=== PATIENT | male | born 1960 | race Caucasian/White ===

== ENCOUNTER → 2020-05-16 | Outpatient (CLI) | payer OTHER ==
[~2020-05-16] MED LIST: AMIODARONE HCL200 MG PO; CARAFATE1 GM/10 ML PO; ELIQUIS5 MG PO; HYDROCHLOROTHIA25 MG PO; LISINOPRIL10 MG PO; METOPROLOL SUCC50 MG PO; OMEPRAZOLE20 M1 PO; SIMVASTATIN80 MG PO
[2020-05-16 11:43] LABS: BASOPHILS % 0.6 % (0.0-1.0); EOSINOPHILS # (AUTO) 0.2 (0.0-0.4); EOSINOPHILS % 3.1 % (0.0-6.0); HEMATOCRIT 41.5 % (38.2-49.6); HEMOGLOBIN 13.7 g/dL (14.0-18.0); LYMPHOCYTES # (AUTO) 1.2 (1.0-3.2); LYMPHOCYTES % 16.6 % (18.0-39.1); MEAN CORPUSCULAR HEMOGLOBIN 32.5 pg (28-32); MEAN CORPUSCULAR VOLUME 98.3 fL (81-99); MONOCYTES # (AUTO) 0.5 (0.2-0.8); MONOCYTES % 7.4 % (4.4-11.3); NEUTROPHILS # (AUTO) 5.2 (2.1-6.9); PLATELET COUNT 167 x10e3/uL (140-360); RED BLOOD COUNT 4.22 x10e6/uL (4.3-5.7); RED CELL DISTRIBUTION WIDTH 12.2 % (11.7-14.4)
[2020-05-16 11:55] LABS: INR 0.97; PROTHROMBIN TIME 13.5 seconds (11.9-14.5)
[2020-05-16 12:04] LABS: ALBUMIN 3.4 g/dL (3.5-5.0); ALBUMIN/GLOBULIN RATIO 1.1 (0.8-2.0); ANION GAP 13.3 mmol/L (8-16); CALCIUM 8.7 mg/dL (8.4-10.2); CREATININE, SERUM 1.94 mg/dL (0.72-1.25); POTASSIUM 5.3 mmol/L (3.5-5.1)
== END ==
LOC: LAB 15:56 → EDSTATUS 05-20 09:00
PROVIDERS: ATTEND Internal Medicine Cardiovascular Disease
DX: Z01.812 Encounter for preprocedural laboratory examination (principal); Z20.828 Contact with and (suspected) exposure to other viral communicable diseases; I25.10 Atherosclerotic heart disease of native coronary artery without angina pectoris
CPT/HCPCS: 36415; 80053; 85025; 85610; U0002

== ENCOUNTER → 2020-05-27 | Day surgery (SDC) | payer OTHER ==
[2020-05-23 14:17] LABS: BASOPHILS # (AUTO) 0.1 (0.0-0.1); BASOPHILS % 0.8 % (0.0-1.0); EOSINOPHILS # (AUTO) 0.2 (0.0-0.4); EOSINOPHILS % 3.3 % (0.0-6.0); HEMATOCRIT 42.3 % (38.2-49.6); HEMOGLOBIN 14.2 g/dL (14.0-18.0); LYMPHOCYTES # (AUTO) 1.3 (1.0-3.2); LYMPHOCYTES % 20.7 % (18.0-39.1); MEAN CORPUSCULAR HEMOGLOBIN 32.9 pg (28-32); MEAN CORPUSCULAR HGB CONC 33.6 g/dL (31-35); MEAN CORPUSCULAR VOLUME 98.1 fL (81-99); MONOCYTES # (AUTO) 0.4 (0.2-0.8); MONOCYTES % 5.7 % (4.4-11.3); NEUTROPHILS # (AUTO) 4.3 (2.1-6.9); NEUTROPHILS % 69.2 % (38.7-80.0); PLATELET COUNT 185 x10e3/uL (140-360); RED BLOOD COUNT 4.31 x10e6/uL (4.3-5.7)
[2020-05-23 14:27] LABS: INR 0.91; PROTHROMBIN TIME 12.8 seconds (11.9-14.5)
[2020-05-23 14:40] LABS: ALBUMIN 3.7 g/dL (3.5-5.0); ALBUMIN/GLOBULIN RATIO 1.2 (0.8-2.0); ANION GAP 12.7 mmol/L (8-16); CALCIUM 9.4 mg/dL (8.4-10.2); CREATININE, SERUM 1.78 mg/dL (0.72-1.25); POTASSIUM 4.7 mmol/L (3.5-5.1)
[~2020-05-27] VITALS: Ht 177.8 cm; Wt 108.9 kg
[2020-05-27] VITALS (8 sets, daily range): BP systolic 121–136; BP diastolic 77–91
[~2020-05-27] MED LIST changes: +FENTANYL CITRATE/PF 100MCG/2 ML INJ ONE; +HEPARIN SOD/SOD CHLORIDE 2,000 ML ONE; +IOPAMIDOL 370 MG/ML 200 ML INFUS..BTL INJ ONE; +LIDOCAINE HCL 2% LOCAL 20 ML VIAL ONE; +MIDAZOLAM HCL 2 MG/2 ML VIAL ONE; +SODIUM CHLORIDE 0.9% 1000ML 1,000 ML ONE; +VERAPAMIL HCL 2.5 MG/ML 2 ML VIAL ONE
== END | disposition home or self-care (01) ==
LOC: CATH LAB 10:08
PROVIDERS: ATTEND Internal Medicine Cardiovascular Disease
DX: I25.118 Atherosclerotic heart disease of native coronary artery with other forms of angina pectoris (principal); I11.0 Hypertensive heart disease with heart failure; I50.9 Heart failure, unspecified; R94.39 Abnormal result of other cardiovascular function study; I48.92 Unspecified atrial flutter; I45.10 Unspecified right bundle-branch block; Z01.812 Encounter for preprocedural laboratory examination; Z20.822 Contact with and (suspected) exposure to COVID-19; Z79.02 Long term (current) use of antithrombotics/antiplatelets; Z68.34 Body mass index [BMI] 34.0-34.9, adult
CPT/HCPCS: 36415; 80053; 85025; 85610; 93458; C1769; C1887; J2001; J2250; J3010; J7030; Q9967; U0002; 99152

== ENCOUNTER 2024-03-05 16:55 | Emergency (ER) | payer OTHER ==
[~2024-03-05] VITALS: Ht 177.8 cm; Wt 108.9 kg
[~2024-03-05 16:55] MED LIST changes: -FENTANYL CITRATE/PF 100MCG/2 ML INJ ONE; -HEPARIN SOD/SOD CHLORIDE 2,000 ML ONE; -IOPAMIDOL 370 MG/ML 200 ML INFUS..BTL INJ ONE; -LIDOCAINE HCL 2% LOCAL 20 ML VIAL ONE; -MIDAZOLAM HCL 2 MG/2 ML VIAL ONE; -SODIUM CHLORIDE 0.9% 1000ML 1,000 ML ONE; -VERAPAMIL HCL 2.5 MG/ML 2 ML VIAL ONE
[2024-03-05] MEDS ORDERED: DEXAMETHASONE SOD PHOS 10 MG/1 ML VIAL ONE (18:07)
[2024-03-05] MEDS: DEXAMETHASONE SOD PHOS 10 MG/1 ML VIAL IM ONE (18:07)
[2024-03-05] MEDS ORDERED: MEDROL4 M2 PEG (20:06)
[2024-03-05] MEDS ORDERED: ULTRAM 50MG50 MG PO (20:06)
[2024-03-05 20:26] VITALS: PULSE 73; RESP 16; TEMP 98.2; O2SAT 99
== END 2024-03-05 20:28 | disposition home or self-care (01) ==
LOC: ER 17:09
DX: M25.511 Pain in right shoulder (principal); W18.39XA Other fall on same level, initial encounter; Y92.89 Other specified places as the place of occurrence of the external cause; E78.5 Hyperlipidemia, unspecified; E78.00 Pure hypercholesterolemia, unspecified; Z87.19 Personal history of other diseases of the digestive system
CPT/HCPCS: 73030; 99283; J1100

== ENCOUNTER 2024-04-12 15:00 | Inpatient (IN) | payer OTHER ==
[~2024-04-12] VITALS: Ht 177.8 cm; Wt 108.9 kg
[~2024-04-12 15:00] MED LIST changes: +MEDROL4 M2 PEG; +ULTRAM 50MG50 MG PO
[2024-04-12] MEDS ORDERED: SODIUM CHLORIDE FLUSH 10 ML SYR IV PRN (15:15)
[2024-04-12 15:30] LABS: BASOPHILS # (AUTO) 0.1 (0.0-0.1); BASOPHILS % 0.4 % (0.0-1.0); EOSINOPHILS # (AUTO) 0.1 (0.0-0.4); EOSINOPHILS % 0.4 % (0.0-6.0); HEMATOCRIT 37.6 % (38.2-49.6); HEMOGLOBIN 11.8 g/dL (14.0-18.0); LYMPHOCYTES % 8.9 % (18.0-39.1); MEAN CORPUSCULAR HEMOGLOBIN 31.1 pg (28-32); MEAN CORPUSCULAR HGB CONC 31.4 g/dL (31-35); MEAN CORPUSCULAR VOLUME 98.9 fL (81-99); MONOCYTES # (AUTO) 0.5 (0.2-0.8); MONOCYTES % 4.6 % (4.4-11.3); NEUTROPHILS # (AUTO) 9.7 (2.1-6.9); NEUTROPHILS % 85.3 % (38.7-80.0); PLATELET COUNT 184 x10e3/uL (140-360); RED CELL DISTRIBUTION WIDTH 11.8 % (11.7-14.4); WHITE BLOOD COUNT 11.41 x10e3/uL (4.8-10.8)
[2024-04-12 15:54] LABS: ALBUMIN 3.6 g/dL (3.5-5.0); ALBUMIN/GLOBULIN RATIO 1.2 (0.8-2.0); ANION GAP 17.9 mmol/L (8-16); BILIRUBIN,TOTAL 0.5 mg/dL (0.2-1.2); CALCIUM 9.4 mg/dL (8.4-10.2); CREATININE, SERUM 2.08 mg/dL (0.72-1.25); POTASSIUM 4.9 mmol/L (3.5-5.1); TOTAL PROTEIN 6.7 g/dL (6.5-8.1)
[2024-04-12] MEDS: ONDANSETRON HCL INJ 2MG/ML 2ML 2 MG/ML VIAL IV STA (15:54)
[2024-04-12] MEDS: ASPIRIN 81 MG CHEW TAB PO ONE ×2 (15:54→17:40)
[2024-04-12] MEDS: Morphine 4mg INJECTION 4 MG/ML INJ IV ONE (15:54)
[2024-04-12 16:00] LABS: TROPONIN I 0.022 ng/mL (0-0.300)
[2024-04-12] MEDS ORDERED: ONDANSETRON HCL INJ 2MG/ML 2ML 2 MG/ML VIAL IV PRN ×2 (17:15→18:15)
[2024-04-12] MEDS ORDERED: SODIUM CHLORIDE FLUSH 10 ML SYR INJ PRN (17:15)
[2024-04-12] MEDS ORDERED: ACETAMINOPHEN 325 MG TAB PO PRN (18:15)
[2024-04-12] MEDS ORDERED: POLYETHYLENE GLYCOL 3350 17 GM PACK PO PRN (18:15)
[2024-04-12] MEDS ORDERED: HYDRALAZINE HCL 20 MG/ML VIAL IV PRN (18:15)
[2024-04-12] MEDS: HYDROCODONE/APAP 10MG-325MG TAB PO PRN (19:27)
[2024-04-12 19:41] VITALS: PULSE 69; RESP 17; TEMP 98.1
[2024-04-12 20:00] VITALS: BP 106/72; PULSE 77; RESP 18; TEMP 97.9; O2SAT 100
[2024-04-12] MEDS ORDERED: ALLOPURINOL100 MG PO (20:06)
[2024-04-12] MEDS ORDERED: MYCOPHENOLATE250 MG PO (20:09)
[2024-04-12] MEDS ORDERED: [UNRECOGNIZED DRUG - OTHER] PO (20:09)
[2024-04-12] MEDS ORDERED: sodium bicarbonate PO (20:09)
[2024-04-12] MEDS ORDERED: ASPIRIN325 MG PO (20:09)
[2024-04-12] MEDS ORDERED: HYDRALAZINE HC100 MG PO (20:09)
[2024-04-12 21:03] VITALS: BP 106/72; PULSE 77; RESP 18; TEMP 97.9; O2SAT 100
[2024-04-12 21:06] VITALS: BP 106/72; PULSE 77; RESP 18; TEMP 97.9; O2SAT 100
[2024-04-12] MEDS ORDERED: Morphine 4mg INJECTION 4 MG/ML INJ IV PRN (22:45)
[2024-04-13] VITALS (9 sets, daily range): BP systolic 93–114; BP diastolic 58–78; PULSE 62–88; RESP 16–19; TEMP 97.5–98.5; O2SAT 97–99
[2024-04-13] MEDS ORDERED: SODIUM BICARBO650 MG PO (01:31)
[2024-04-13 05:39] LABS: BASOPHILS % 0.3 % (0.0-1.0); EOSINOPHILS # (AUTO) 0.1 (0.0-0.4); EOSINOPHILS % 2.2 % (0.0-6.0); HEMATOCRIT 31.2 % (38.2-49.6); LYMPHOCYTES # (AUTO) 1.7 (1.0-3.2); LYMPHOCYTES % 25.3 % (18.0-39.1); MEAN CORPUSCULAR HEMOGLOBIN 30.9 pg (28-32); MEAN CORPUSCULAR HGB CONC 32.1 g/dL (31-35); MEAN CORPUSCULAR VOLUME 96.3 fL (81-99); MONOCYTES # (AUTO) 0.6 (0.2-0.8); MONOCYTES % 8.8 % (4.4-11.3); NEUTROPHILS # (AUTO) 4.1 (2.1-6.9); NEUTROPHILS % 62.9 % (38.7-80.0); PLATELET COUNT 176 x10e3/uL (140-360); RED BLOOD COUNT 3.24 x10e6/uL (4.3-5.7); RED CELL DISTRIBUTION WIDTH 11.9 % (11.7-14.4); WHITE BLOOD COUNT 6.51 x10e3/uL (4.8-10.8)
[2024-04-13 06:03] LABS: ALBUMIN/GLOBULIN RATIO 1.2 (0.8-2.0); ANION GAP 13.8 mmol/L (8-16); BILIRUBIN,TOTAL 0.3 mg/dL (0.2-1.2); CALCIUM 8.7 mg/dL (8.4-10.2); CREATININE, SERUM 2.12 mg/dL (0.72-1.25); POTASSIUM 4.8 mmol/L (3.5-5.1); TOTAL PROTEIN 5.5 g/dL (6.5-8.1)
[2024-04-13 06:26] LABS: CHOL/HDL RATIO 4.3 (3.9-4.7); MAGNESIUM 1.8 MG/DL (1.3-2.1); PHOSPHORUS 5.5 MG/DL (2.3-4.7)
[2024-04-13 06:37] LABS: TROPONIN I 0.035 ng/mL (0-0.300)
[2024-04-13 06:52] LABS: FREE T4 (FREE THYROXINE) 1.2 ng/dL (0.8-1.8); THYROID STIMULATING HORMONE 0.007 uIU/mL (0.350-4.940)
[2024-04-13] MEDS: METOPROLOL SUCCINATE 25 MG TAB XL PO SCH (08:44)
[2024-04-13] MEDS: DOCUSATE SODIUM 100 MG CAP PO SCH (08:44)
[2024-04-13] MEDS: SODIUM BICARBONATE 650 MG TAB PO SCH (08:44)
[2024-04-13] MEDS: ASPIRIN 81 MG ENTERIC COATED PO SCH (08:44)
[2024-04-13] MEDS: MYCOPHENOLATE MOFETIL 250 MG CAP PO SCH (08:45)
[2024-04-13] MEDS ORDERED: SODIUM BICARBONATE 650 MG TAB PO SCH (09:00)
[2024-04-13] MEDS ORDERED: [UNRECOGNIZED DRUG - OTHER] PO SCH (09:00)
[2024-04-13 14:46] LABS: TROPONIN I 0.016 ng/mL (0-0.300)
[2024-04-14] VITALS (7 sets, daily range): BP systolic 104–125; BP diastolic 62–78; PULSE 60–71; RESP 18–20; TEMP 97.6–98.2; O2SAT 96–100
[2024-04-14 05:43] LABS: ANION GAP 13.9 mmol/L (8-16); CALCIUM 8.9 mg/dL (8.4-10.2); CREATININE, SERUM 2.05 mg/dL (0.72-1.25); POTASSIUM 4.9 mmol/L (3.5-5.1)
[2024-04-14] MEDS: SODIUM BICARBONATE 650 MG TAB PO SCH (17:32)
[2024-04-14] MEDS ORDERED: SODIUM BICARBO650 MG PO ×2 (17:37→17:40)
[2024-04-14] MEDS ORDERED: ONDANSETRON HCL 4 MG ORAL DISINTEGRATING TAB PO PRN (18:30)
== END 2024-04-14 18:20 | disposition home or self-care (01) | DRG 309 ==
LOC: ER 15:06 → ERHOLD 17:11 → MED/SURG 20:09 → OBSVTOIN 04-14 15:54
PROVIDERS: ADMIT Internal Medicine; ATTEND Internal Medicine
DX: I48.0 Paroxysmal atrial fibrillation (principal); N17.9 Acute kidney failure, unspecified; I47.10 Supraventricular tachycardia, unspecified; R06.00 Dyspnea, unspecified; I12.9 Hypertensive chronic kidney disease with stage 1 through stage 4 chronic kidney disease, or unspecified chronic kidney disease; N18.32 Chronic kidney disease, stage 3b; R53.1 Weakness; E83.42 Hypomagnesemia; E78.5 Hyperlipidemia, unspecified; R19.7 Diarrhea, unspecified; E66.9 Obesity, unspecified; Z68.34 Body mass index [BMI] 34.0-34.9, adult; F17.200 Nicotine dependence, unspecified, uncomplicated
CPT/HCPCS: 36415; 71045; 80048; 80053; 80061; 82550; 83036; 83735; 83880; 84100; 84439; 84443; 84484; 85025; 93005; 93306; 94760; 94799; 99284; G0378; J2270; J2405